=== PATIENT | male | born 1930 | race Caucasian/White ===

== ENCOUNTER 2017-12-13 12:57 | Observation (INO) ==
--- NOTE | 2017-12-13 14:13 | ED ---
HPI General Chief Complaint: Fall Stated Complaint: fall/ [id number] Time Seen by Provider: 12/13/17 13:47 Source: patient Mode of arrival: ambulatory Limitations: no limitations History of Present Illness HPI Narrative: 87yo M with PMH of hydocephalus s/p DIRECTOR PHARMACEUTICAL shunt 4-[address] Crespo here with c/o fall yesterday. As per his daughter, pt has been having increasing problem with his balance for the last week. Pt has constant dizziness for years. Currently complaining of occipital headache and neck pain. Pt has glaucoma but no new visual changes. Denies any fever, chest pain , sob, n/v, abdominal pain, urinary incontinence, new focal weakness or numbness. Related Data Home Medications Medication Instructions Recorded Confirmed Vitamin For Eyes 1 tab PO DAILY 12/13/17 12/13/17 ascorbic acid (vitamin C) [Vitamin 500 mg PO BID 12/13/17 12/13/17 C] aspirin [Aspirin Low Dose] 81 mg PO DAILY 12/13/17 12/13/17 bilberry 100 mg PO DAILY 12/13/17 12/13/17 bimatoprost [Lumigan] 1 drp EACH EYE QPM 12/13/17 12/13/17 cholecalciferol (vitamin D3) 5,000 unit PO DAILY 12/13/17 12/13/17 [Vitamin D3] citalopram [Celexa] 40 mg PO DAILY 12/13/17 12/13/17 cyanocobalamin (vitamin B-12) 1,000 mcg PO DAILY 12/13/17 12/13/17 [Vitamin B-12] dorzolamide-timolol 1 drp EACH EYE BID 12/13/17 12/13/17 fluticasone [Flonase Allergy 2 spray INTRANASAL DAILY 12/13/17 12/13/17 Relief] icosapent ethyl [Vascepa] 1 gm PO BID 12/13/17 12/13/17 midodrine 5 mg PO TID 12/13/17 12/13/17 nateglinide 120 mg PO TID 12/13/17 12/13/17 omeprazole 40 mg PO DAILY 12/13/17 12/13/17 sitagliptin-metformin [Janumet] 0.5 tab PO BID 12/13/17 12/13/17 thiamine HCl (vitamin B1) [Vitamin 100 mg PO DAILY 12/13/17 12/13/17 B-1] tiotropium-olodaterol [Stiolto 2 puff INHALATION DAILY 12/13/17 12/13/17 Respimat] Allergies Allergy/AdvReac Type Severity Reaction Status Date / Time No Known Drug Allergies Allergy Unknown NONE Verified 12/13/17 13:53 Review of Systems ROS Unobtainable All other systems reviewed negative except as stated in [facility] Medical History Medical History Diabetes (Acute) Glaucoma (Acute) Social History Social History Substance History: No History of Abuse Smoking Status: Former smoker How Often Do You Have a Drink Containing Alcohol: Never Recent Travel in [facility] within the Last 8 Weeks: No Recent Out of Country Travel within the Last 8 Weeks: No Immunization History Tetanus Immunization: <5 Years Hx Influenza Vaccine This Season: No Exam Narrative Exam Narrative: GENERAL: 87yo M not in distress. SKIN: Focused skin assessment warm/dry. HEAD: Atraumatic. Normocephalic. EYES: Pupils equal and round at 3mm bilaterally. EOMI. ENT: No nasal bleeding or discharge. Mucous membranes pink and moist. NECK: Trachea midline. No JVD. CARDIOVASCULAR: Regular rate and rhythm. No murmur appreciated. RESPIRATORY: No accessory muscle use. Clear to auscultation. Breath sounds equal bilaterally. GASTROINTESTINAL: Abdomen soft, non-tender, nondistended. No rebound tenderness or guarding. MUSCULOSKELETAL: No obvious deformities. No clubbing. No cyanosis. No edema. NEUROLOGICAL: AAOx3. No obvious cranial nerve deficits. Muscle strength normal in all extremities. Sensation equal in all extremities. Sensation equal bilaterally. Normal speech. PSYCHIATRIC: Appropriate mood and affect; insight and judgment normal. Course Hospital Course: EKG: Sinus bradycardia at 57bpm. Normal axis. 1st AV block. Reevaluation(s) Reevaluation #1: PT consulted for STAT eval Case management is currently involved in case as patient does not meet inpatient critiera Time: 18:20 Reevaluation #2: Stat consult placed for PT - since PT is most likely not in house and has left for the day, case management request that patient be held in the ER for PT eval in the morning, if patient fails PT eval in the morning, then she will help with placing him in a rehab facility tomorrow as patient does live alone at home. Patient does not meet criteria for admission or observation to the hospital. Initial Documented Vital Signs Temperature 98.3 F 12/13/17 13:22 Pulse Rate 62 12/13/17 13:22 Respiratory Rate 16 12/13/17 13:22 Blood Pressure 171/79 H 12/13/17 13:22 Pulse Oximetry 97 12/13/17 13:22 Last Documented Vital Signs Temperature 98.3 F 12/13/17 13:22 Pulse Rate 83 12/14/17 07:07 Respiratory Rate 14 12/14/17 07:07 Blood Pressure 151/88 H 12/14/17 07:07 Pulse Oximetry 96 12/14/17 07:07 Sign Out Sign Out Data: Patient Sign Out occurred on 12/13/17 at 17:44. Patient's care was discussed, and care was transferred from Peggy Johnson DO to Jessica Araya. Sign Out Comment: Please discuss with resident physician to admit patient. Last updated by Peggy Johnson DO at 12/13/17 17:35 Post-Handoff Eval: Received patient in sign out, ER workup has been completed, request that I talk to the inpatient team and get patient admitted to the hospital as patient has gait instability. Patient is able to move all extremites, reports that he just feels weaker overall, he did have home PT but "that's over and I need more home PT." patient understands that he cannot be admitted to the hospital at this time , physical therapy will see him in the morning and assess him, it was be decided whether he will need inpatient physical therapy Medical Decision Making MDM Narrative Medical decision making narrative: 87yo M with hydrocephalus here with c/o worsening balance for the last week. Pt fell last night and has headache and neck pain. No new focal neurologic deficits. Labs reviewed, no leukocytosis. H/H 12/36.6. BMP unremarkable. CT cervical spine showed no acute bony fracture. Extensive primary degenerative changes, disc degeneration disc space narrowing from C3 through C7. CT brain showed stable CT scan of the brain compared to prior exam from 2017. No change in the right ventricular shunt position. The ventricles are mildly prominent but stable compared to prior study. No focal or acute intracranial hemorrhage. Discussed with Dr. Ma who is the neurosurgeon covering Dr. Crespo and he said pt can follow up with Dr. Crespo as outpatient. UA showed WBC 9. Negative nitrite and negative leukocyte. Pt's son came later and said he is unable to walk and that he cant go home. Pt does not have his walker here. He has been having balance problems for at least a week and is always dizzy. Will admit pt for PT and further evaluation since pt is unable to ambulate and lives by himself. Sign out to next team to discuss with resident physicians. 0100 patient is signed out to me by Dr. Araya. Patient remains in the emergency department. Physical therapy examination is not yet done at this time. Patient will stay in the emergency department until this happens and recommendation is made. 0700 patient signed out to Ozzy Fernandez PA-C. He will assume care of the patient at this time. Differential Diagnosis Differential Diagnosis: ICH vs. fracture vs. contusion vs. hydrocephalus Lab Data Result diagrams: 12/13/17 14:20 12/13/17 14:20 Lab Results 12/13/17 12/13/17 12/13/17 Range/Units 14:20 14:20 15:25 WBC 9.0 (4.0-11.0) th/mm3 RBC 4.07 L (4.50-5.90) mil/mm3 Hgb 12.0 L (13.0-17.0) gm/dL Hct 36.6 L (39.0-51.0) % MCV 90.0 (80.0-100.0) fL MCH 29.6 (27.0-34.0) pg MCHC 32.8 (32.0-36.0) % RDW 14.2 (11.6-17.2) % Plt Count 234 (150-450) th/mm3 MPV 8.1 (7.0-11.0) fL Neut % (Auto) 68.0 (16.0-70.0) % Lymph % (Auto) 19.9 (9.0-44.0) % Bartholomew % (Auto) 10.8 H (0.0-8.0) % Eos % (Auto) 1.1 (0.0-4.0) % Baso % (Auto) 0.2 (0.0-2.0) % Neut # (Auto) 6.2 (1.8-7.7) th/mm3 Lymph # (Auto) 1.8 (1.0-4.8) th/mm3 Bartholomew # (Auto) 1.0 H (0.0-0.9) th/mm3 Eos # (Auto) 0.1 (0.0-0.4) th/mm3 Baso # (Auto) 0.0 (0.0-0.2) th/mm3 WBC Differential . Differential Comment Auto diff final Sodium 141 (136-145) meq/L Potassium 4.4 (3.5-5.1) meq/L Chloride 106 (98-107) meq/L Carbon Dioxide 24.8 (21.0-32.0) meq/L Anion Gap 10 (5-15) meq/L BUN 17 (7-18) mg/dL Creatinine 1.02 (0.60-1.30) mg/dL Estimated GFR 69 L (>89) mL/min Random Glucose 109 H (74-106) mg/dL Calcium 8.4 L (8.5-10.1) mg/dL Urine Color Yellow (Yellw/Straw) Urine Clarity Clear (Clear) Urine pH 7.0 (5.0-8.5) Ur Specific [place] 1.014 (1.002-1.035) Urine Protein Negative (Neg-Trace) mg/dL Urine Glucose (UA) Negative (Negative) mg/dL Urine Ketones Negative (Negative) mg/dL Urine Occult Blood Negative (Negative) Urine Nitrate Negative (Negative) Urine Bilirubin Negative (Negative) Urine Urobilinogen 4 or greater (Less than 2) mg/dL Ur Leukocyte Esterase Negative (Negative) Urine RBC Less than 1 (0-3) /hpf Urine WBC 9 H (0-5) /hpf Ur Squamous Epith Cells <1 (0-5) /hpf Imaging Data Radiologist's impression: ITS Impressions Head CT 12/13/17 14:00 CONCLUSION: 1. Stable CT scan of the brain compared to the prior exam from 2017. 2. No change in the right ventricular shunt position. The ventricles are mildly prominent but stable compared to the prior study. 3. Bilateral cortical atrophy and chronic white matter changes. 4. No focal or acute intracranial hemorrhage. Cervical Spine CT 12/13/17 14:02 CONCLUSION: 1. No acute bony fracture. 2. Extensive primary degenerative changes, disc degeneration disc space narrowing from C3 through C7. ECG Data EKG Prior to Arrival: No Attestation: I personally reviewed and interpreted this ECG as follows: Interpretation: EKG: Sinus bradycardia at 57bpm. Normal axis. 1st AV block with prolong [place] interval. No significant ST elevation or depression. Discharge Plan Discharge Disposition Patient Disposition: 30 Still Patient Discharge Condition Condition: Stable Discharge Order Discharge Orders: Discharge Order (Routine); Ordered 12/13/17 Ordered By: Peggy Johnson Discharge Details Discharge Problem: Fall Physicians Team ED Provider: Jessica Araya ED Midlevel Provider: Eri Sierra Primary Care Provider: UNKNOWN, Rxs /Orders / Referrals /Forms Prescriptions: No Action bilberry 100 mg Capsule 100 mg PO DAILY RF: 0 dorzolamide-timolol 22.3-6.8 mg/mL Drops 1 drp EACH EYE BID RF: 0 bimatoprost [Lumigan] 0.01 % Drops 1 drp EACH EYE QPM RF: 0 icosapent ethyl [Vascepa] 1 gram Capsule 1 gm PO BID RF: 0 Vitamin For Eyes 1 tab PO DAILY RF: 0 nateglinide 120 mg Tablet 120 mg PO TID RF: 0 citalopram [Celexa] 40 mg Tablet 40 mg PO DAILY RF: 0 midodrine 5 mg Tablet 5 mg PO TID RF: 0 cyanocobalamin (vitamin B-12) [Vitamin B-12] 1,000 mcg Tablet 1,000 mcg PO DAILY RF: 0 thiamine HCl (vitamin B1) [Vitamin B-1] 100 mg Tablet 100 mg PO DAILY RF: 0 omeprazole 40 mg Capsule,Delayed Release(Dr/Ec) 40 mg PO DAILY RF: 0 aspirin [Aspirin Low Dose] 81 mg Tablet,Delayed Release (Dr/Ec) 81 mg PO DAILY RF: 0 ascorbic acid (vitamin C) [Vitamin C] 500 mg Tablet 500 mg PO BID RF: 0 fluticasone [Flonase Allergy Relief] 50 mcg/actuation [place],Suspension 2 spray Intranasal DAILY RF: 0 sitagliptin-metformin [Janumet] 50-1,000 mg Tablet 0.5 tab PO BID RF: 0 cholecalciferol (vitamin D3) [Vitamin D3] 5,000 unit Tablet 5,000 unit PO DAILY RF: 0 tiotropium-olodaterol [Stiolto Respimat] 2.5-2.5 mcg/actuation Mist 2 puff INHALATION DAILY RF: 0 Status ED Status: With Doctor
[2017-12-13 14:39] LABS: Baso % (Auto) 0.2 % (0.0-2.0); Eos # (Auto) 0.1 th/mm3 (0.0-0.4); Eos % (Auto) 1.1 % (0.0-4.0); Hematocrit 36.6 % (39.0-51.0); Lymph # (Auto) 1.8 th/mm3 (1.0-4.8); Lymph % (Auto) 19.9 % (9.0-44.0); Mean Corpuscular HGB Conc 32.8 % (32.0-36.0); Mean Corpuscular Hemoglobin 29.6 pg (27.0-34.0); Mean Platelet Volume 8.1 fL (7.0-11.0); Mono % (Auto) 10.8 % (0.0-8.0); Neut # (Auto) 6.2 th/mm3 (1.8-7.7); Platelet Count 234 th/mm3 (150-450); Red Blood Count 4.07 mil/mm3 (4.50-5.90); Red Cell Distribution Width 14.2 % (11.6-17.2)
[2017-12-13 15:15] LABS: Calcium 8.4 mg/dL (8.5-10.1); Carbon Dioxide 24.8 meq/L (21.0-32.0); Potassium 4.4 meq/L (3.5-5.1)
[2017-12-13 17:12] LABS: Bilirubin,Urine Negative (Negative); Clarity,Urine Clear (Clear); Color,Urine Yellow (Yellw/Straw); Glucose,Urine (UA) Negative (Negative); Leukocyte Esterase,Urine Negative (Negative); Nitrite,Urine Negative (Negative); Specific Gravity,Urine 1.014 (1.002-1.035); Squamous Epithelial Cell,Urine <1 /hpf (0-5); Urobilinogen,Urine 4 or Greater mg/dL (Less than 2)
[2017-12-13] MEDS ORDERED: Acetaminophen 500 MG Tablet PO ONE (17:12)
--- NOTE | 2017-12-14 11:57 | ECG ---
Date Performed: 12/13/2017 Time Performed: 15:13:40 PTAGE: 87 years EKG: SINUS BRADYCARDIA 1ST DEGREE AV BLOCK Since the PREVIOUS TRACING , no significant change noted PREVIOUS TRACIN08/28/2015 17.13 DOCTOR: Saulo Tafoya Interpretating Date/Time 12/14/2017 11:56:09
[2017-12-14] MEDS ORDERED: Temazepam 15 MG Capsule PO PRN (18:03)
[2017-12-14] MEDS ORDERED: Bisacodyl 10 MG Supp RECTAL PRN (18:03)
--- NOTE | 2017-12-14 20:21 | P.HPIM ---
History of Present Illness Primary Care Physician: UNKNOWN Chief Complaint: weakness History of Present Illness: 87 y/o male with a history of hydrocephalous s/p vp software support shunt, glaucoma, hypotension, DM and vertigo was brought to the ED for increased weakness. Patient states for the last 5 years he has been getter increasingly weaker even despite the SHELL 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 SUPERVISOR shunt. He does live alone and is not able to care for himself alone. Family is unable to care for him. He does use a walker at home but falls a lot, last fall was one week ago. Patient was evaluated by physical therapy and rehab is recommended. He denies any chest pain, or sob. No family at bedside. - Inpatient Certification If this patient has been admitted as an Inpatient: I certify that the inpatient services were ordered in accordance with Medicare regulations governing the order. This includes certification that hospital inpatient services are reasonable and necessary and in the case of services not specified as inpatient-only under 42 CFR 419.22(n), that they are appropriately provided as inpatient services in accordance to with the 2-midnight benchmark under 43 CFR 412.3(e) Review of Systems All other systems reviewed negative except as stated in HPI PMFSH - History History Provided By: Patient, Family Member - Medical History Medical History: Medical History (Last Updated 12/14/17 @ 19:53 by MIKA Escobedo) Diabetes Glaucoma Hydrocephalus Hypotension Vertigo - Surgical History Surgical History: Surgical History (Last Updated 12/14/17 @ 19:32 by MIKA Escobedo) Glaucoma shunt device of both eyes S/P 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 - Tobacco History Second Hand Smoke Exposure: No Tobacco Use In Past 30 Days: No Smoking Status: Former smoker - Alcohol History How Often Do You Have a Drink Containing Alcohol: Never - Substance Use History Substance History: No History of Abuse - Travel History Recent Travel in the [place] Within the Last 8 Weeks: No Recent Travel Out of the Country Within the Last 8 Weeks: No - Immunization History Tetanus Immunization: <5 Years Hx Influenza Vaccine This Season: No Medications and Allergies Active Medications: Active Medications Al Hydroxide/Mg Hydroxide (Milk Of Magncooper Liq) 30 ml PO Q12H PRN PRN Reason: Mild Constipation Bisacodyl (Dulcolax Supp) 10 mg RECTAL DAILY PRN PRN Reason: SEVERE CONSITIPATION Heparin Sodium (Porcine) (Heparin Inj) 5,000 units SQ Q12H SANIA Lactulose (Lactulose Liq) 30 ml PO DAILY PRN PRN Reason: SEVERE CONSITIPATION Senna/Docusate Sodium ([place]-Colace) 1 tab PO BID SANIA Sennosides (Senokot) 17.2 mg PO Q12H PRN PRN Reason: Moderate Constipation Sodium Chloride (Ns Flush) 2 ml IV.FLUSH PRN PRN PRN Reason: FLUSH AFTER USING IV ACCESS Temazepam (Restoril) 15 mg PO HS PRN PRN Reason: INSOMNIA Allergies Allergy/AdvReac Type Severity Reaction Status Date / Time No Known Drug Allergies Allergy Unknown NONE Verified 12/13/17 13:53 Home Medications Medication Instructions Recorded Confirmed Type Vitamin For Eyes 1 tab PO DAILY 12/13/17 12/13/17 History ascorbic acid (vitamin C) [Vitamin 500 mg PO BID 12/13/17 12/13/17 History C] aspirin [Aspirin Low Dose] 81 mg PO DAILY 12/13/17 12/13/17 History bilberry 100 mg PO DAILY 12/13/17 12/13/17 History bimatoprost [Lumigan] 1 drp EACH EYE QPM 12/13/17 12/13/17 History cholecalciferol (vitamin D3) 5,000 unit PO DAILY 12/13/17 12/13/17 History [Vitamin D3] citalopram [Celexa] 40 mg PO DAILY 12/13/17 12/13/17 History cyanocobalamin (vitamin B-12) 1,000 mcg PO DAILY 12/13/17 12/13/17 History [Vitamin B-12] dorzolamide-timolol 1 drp EACH EYE BID 12/13/17 12/13/17 History fluticasone [Flonase Allergy 2 spray INTRANASAL DAILY 12/13/17 12/13/17 History Relief] icosapent ethyl [Vascepa] 1 gm PO BID 12/13/17 12/13/17 History midodrine 5 mg PO TID 12/13/17 12/13/17 History nateglinide 120 mg PO TID 12/13/17 12/13/17 History omeprazole 40 mg PO DAILY 12/13/17 12/13/17 History sitagliptin-metformin [Janumet] 0.5 tab PO BID 12/13/17 12/13/17 History thiamine HCl (vitamin B1) [Vitamin 100 mg PO DAILY 12/13/17 12/13/17 History B-1] tiotropium-olodaterol [Stiolto 2 puff INHALATION DAILY 12/13/17 12/13/17 History Respimat] Exam Vital signs: Vital Signs 12/14/17 07:07 12/14/17 18:21 12/14/17 19:35 Temperature 97.6 F 99 F Pulse Rate 83 84 86 Respiratory Rate 14 18 18 Blood Pressure 151/88 H 152/72 H 132/70 Pulse Oximetry 96 96 - Constitutional no acute distress - Routine HEENT Exam Head: Present: normocephalic Eye: Present: EOMI, PERRL - Routine Neck Exam Present: supple, full ROM - Routine Respiratory Exam Absent: rales, stridor, wheezes, crackles - Routine Cardiovascular Exam Present: RRR - Routine Abdominal Exam Present: soft, normoactive bowel sounds - Routine Skin Exam Present: intact - Routine Neurological Exam Present: alert, oriented X3 - Detailed Neurological Exam Neuro motor strength exam: LUE 4/5 (Bilateral lower extremities 4/5) Results - Labs CBC & Chem 7: 12/13/17 14:20 12/13/17 14:20 Caprini VTE Risk Assessment Caprini VTE Risk Assessment: Moderate/High Risk (score >= 2) Caprini Risk Assessment Model: Point Value = 1 Point Value = 2 Point Value = 3 Point Value = 5 Age 41-60 Minor surgery BMI > 25 kg/m2 Swollen legs Varicose veins or History of unexplained or recurrent spontaneous Oral contraceptives or hormone replacement Sepsis (< 1 month) Serious lung disease, including pneumonia (< 1 month) Abnormal pulmonary function Acute myocardial infarction Congestive heart failure (< 1 month) History of inflammatory bowel disease Medical patient at bed rest Age 61-74 Arthroscopic surgery Major open surgery (> 45 min) Laparoscopic surgery (> 45 min) Malignancy Confined to bed (> 72 hours) Immobilizing plaster cast Central venous access Age >= 75 History of VTE Family history of VTE Factor V Leiden Prothrombin [id number] Lupus anticoagulant Anticardiolipin antibodies Elevated serum homocysteine Heparin-induced thrombocytopenia Other congenital or acquired thrombophilia Stroke (< 1 month) Elective arthroplasty Hip, pelvis, or leg fracture Acute spinal cord injury (< 1 month) Prophylaxis Regimen: Total Risk Factor Score Risk Level Prophylaxis Regimen 0-1 Low Early ambulation 2 Moderate Order ONE of the following: *Sequential Compression Device (SCD) *Heparin 5000 units SQ BID 3-4 Higher Order ONE of the following medications: *Heparin 5000 units SQ TID *Enoxaparin/Lovenox 40 mg SQ daily (WT < 150 kg, CrCl > 30 mL/min) *Enoxaparin/Lovenox 30 mg SQ daily (WT < 150 kg, CrCl > 10-29 mL/min) *Enoxaparin/Lovenox 30 mg SQ BID (WT < 150 kg, CrCl > 30 mL/min) AND/OR *Sequential Compression Device (SCD) 5 or more Highest Order ONE of the following medications: *Heparin 5000 units SQ TID (Preferred with Epidurals) *Enoxaparin/Lovenox 40 mg SQ daily (WT < 150 kg, CrCl > 30 mL/min) *Enoxaparin/Lovenox 30 mg SQ daily (WT < 150 kg, CrCl > 10-29 mL/min) *Enoxaparin/Lovenox 30 mg SQ BID (WT < 150 kg, CrCl > 30 mL/min) AND *Sequential Compression Device (SCD) Assessment and Plan - Plan Physical deconditioning -Physical therapy eval recommends rehab -Consult case management for placement DM, chronic -Accu checks with SSI -Diabetic diet hypotension, chronic -Cont home midodrine -Monitor vitals DVT prophylaxis: SCDs Discussed Condition With: Patient and RN H&P: Quality - VTE Deep Vein Thrombosis/Pulmonary Embolism Present on Admission: Yes
[2017-12-14] MEDS: Heparin - SQ 10,000 UNITS/ML Vial SQ SCH (20:39)
[2017-12-14] MEDS: Senna/Docusate Sodium 8.6/50 MG Tablet PO SCH ×2 (20:39→23:54)
[2017-12-14] MEDS: Ascorbic Acid 500 MG Tablet PO SCH (21:00)
[2017-12-14] MEDS ORDERED: ICOSAPENT ETHYL 1 GM PO SCH (21:00)
[2017-12-15] MEDS: Dorzolamide-Timolol 2/0.5% Opth Drops 10 ML Bottle EACH EYE SCH ×3 (00:01→21:23)
[2017-12-15] MEDS ORDERED: NATEGLINIDE 120 MG PO SCH ×2 (08:00→09:00)
[2017-12-15] MEDS ORDERED: Non-Formulary Drug (Tiotropium-Olodaterol [Stiolto Respimat] 2 PUFF) INHALATION SCH (09:00)
[2017-12-15] MEDS ORDERED: PT:STIOLTO RESPIMAT INH SCH (09:00)
[2017-12-15] MEDS ORDERED: [UNRECOGNIZED DRUG - OTHER] PO SCH (09:00)
[2017-12-15] MEDS: Ascorbic Acid 500 MG Tablet PO SCH ×2 (09:13→21:23)
[2017-12-15] MEDS: Senna/Docusate Sodium 8.6/50 MG Tablet PO SCH ×2 (09:13→21:23)
[2017-12-15] MEDS: Heparin - SQ 10,000 UNITS/ML Vial SQ SCH ×2 (09:14→21:22)
[2017-12-15] MEDS ORDERED: Dextrose 50% in Water 50 ML Vial IV.PUSH PRN (10:21)
[2017-12-15] MEDS: Insulin NovoLOG Aspart Correctional Sugar Inj SQ SCH ×2 (13:13→19:02)
--- NOTE | 2017-12-15 13:28 | P.PN ---
Subjective Interval history: Follow-up visit status post fall, generalized weakness, diabetes. Patient seen and examined today. Daughter at the bedside. Patient states he is doing okay. Denies pain and discomfort. Denies SOB/ dyspnea. Denies chest pain, palpitations, headaches, dizziness. Denies fevers, chills, n/v/d. Denies dysuria. Physical Exam Vital signs: Vital Signs 12/14/17 18:21 12/14/17 19:35 12/15/17 00:00 Temperature 97.6 F 99 F 98.0 F Pulse Rate 84 86 78 Respiratory Rate 18 18 17 Blood Pressure 152/72 H 132/70 185/81 H Pulse Oximetry 96 95 12/15/17 08:16 12/15/17 12:44 Temperature 97.6 F 97.7 F Pulse Rate 77 64 Respiratory Rate 14 22 Blood Pressure 181/90 H 144/62 H Pulse Oximetry 97 96 Intake & Output 12/14/17 12/15/17 12/15/17 18:59 06:59 18:59 Other: Date of Last Bowel Movement 12/14/17 Narrative: GENERAL: This is a well-nourished patient, in no apparent distress. SKIN: Warm and dry. HEENT: Normocephalic. Pupils equal round and reactive. Nose without bleeding. Airway patent. NECK: Trachea midline. No JVD. Supple. CARDIOVASCULAR: Regular rate and rhythm without murmurs, gallops, or rubs. RESPIRATORY: Clear to auscultation. Breath sounds equal bilaterally. No wheezes , rales, or rhonchi. GASTROINTESTINAL: Abdomen soft, non-tender, nondistended. Bowel Sounds normoactive x4. MUSCULOSKELETAL: Extremities without clubbing, cyanosis, or edema. NEUROLOGICAL: Awake and alert. Oriented to place, person. Moves all extremities equally. Slow speech. Results - Labs CBC & Chem 7: 12/13/17 14:20 12/13/17 14:20 Laboratory Results - last 24 hr 12/14/17 12/15/17 12/15/17 15:58 10:22 12:54 POC Glucose 317 H 271 H 290 H Assessment and Plan - Plan 87 y/o male with a history of hydrocephalous s/p vp production shunt, glaucoma, hypotension, DM and vertigo was brought to the ED for increased weakness. EYE SURGEON shunt [address] Crespo Physical deconditioning -Status post multiple falls -CT of the head showed. Stable CT scan of the brain compared to the prior exam from 2017. No change in the right ventricular shunt position. The ventricles are mildly prominent but stable compared to the prior study. Bilateral cortical atrophy and chronic white matter changes. No focal or acute intracranial hemorrhage. -CT of the cervical spine no acute bony fracture. Extensive primary degenerative changes, disc degeneration disc space narrowing from C3 through C7. -Physical therapy eval recommends rehab -Consult case management for placement. Plan for [facility] to evaluate -We will consult neurosurgery, Dr. Crespo to assess and evaluate EYE SURGEON shunt. Patient according to physical therapy is leaning towards the right side when sitting up in standing, also with ambulation. DM, chronic -Accu checks with SSI -Diabetic diet Hypotension, chronic -Cont home midodrine -Monitor vitals DVT prophylaxis: SCDs Code Status: Full code Discussed Condition With: Patient, daughter, nursing Discharge Planning: Patient will need placement to rehabilitation center. Possible [facility] placement. Case management following
[2017-12-15] MEDS ORDERED: BIMATOPROST EACH EYE SCH (18:00)
[2017-12-16] MEDS: Insulin NovoLOG Aspart Correctional Sugar Inj SQ SCH ×5 (01:40→22:46)
[2017-12-16] MEDS: Latanoprost 0.005% Opth Drops 2.5 ML Bottle EACH EYE SCH ×2 (01:42→22:37)
[2017-12-16] MEDS: Heparin - SQ 10,000 UNITS/ML Vial SQ SCH ×2 (09:42→22:38)
[2017-12-16] MEDS: Senna/Docusate Sodium 8.6/50 MG Tablet PO SCH ×2 (09:43→22:38)
[2017-12-16] MEDS: Dorzolamide-Timolol 2/0.5% Opth Drops 10 ML Bottle EACH EYE SCH ×2 (09:44→22:48)
[2017-12-16] MEDS: Ascorbic Acid 500 MG Tablet PO SCH ×2 (09:44→22:37)
--- NOTE | 2017-12-16 13:59 | P.PN ---
Subjective Interval history: Follow-up visit status post fall, generalized weakness, diabetes. Patient seen and examined today. Daughter at the bedside. Patient states he is doing okay. Confuse. Does not know where he is at, states it is 1950. Knows his name and daughters name. Denies pain and discomfort. Denies SOB/ dyspnea. Denies chest pain, headaches. Denies fevers, chills. Physical Exam Vital signs: Vital Signs 12/15/17 16:32 12/15/17 20:00 12/15/17 23:44 Temperature 98.3 F 98.6 F 98.5 F Pulse Rate 66 65 64 Respiratory Rate 18 16 16 Blood Pressure 150/68 H 139/67 132/60 Pulse Oximetry 97 96 95 12/16/17 03:53 12/16/17 08:16 12/16/17 11:58 Temperature 99.1 F 97.8 F 98.5 F Pulse Rate 64 68 73 Respiratory Rate 18 16 16 Blood Pressure 137/66 154/69 H 132/94 H Pulse Oximetry 95 95 95 Intake & Output 12/15/17 12/16/17 12/16/17 18:59 06:59 18:59 Other: # Incontinent Voids 3 # Urine Diapers 2 Date of Last Bowel Movement 12/15/17 12/16/17 Narrative: GENERAL: This is a well-nourished patient, in no apparent distress. SKIN: Warm and dry. HEENT: Normocephalic. Pupils equal round and reactive. Nose without bleeding. Airway patent. NECK: Trachea midline. No JVD. Supple. CARDIOVASCULAR: Regular rate and rhythm without murmurs, gallops, or rubs. RESPIRATORY: Clear to auscultation. Breath sounds equal bilaterally. No wheezes , rales, or rhonchi. GASTROINTESTINAL: Abdomen soft, non-tender, nondistended. Bowel Sounds normoactive x4. MUSCULOSKELETAL: Extremities without clubbing, cyanosis, or edema. NEUROLOGICAL: Awake and alert. Oriented to person. Moves all extremities equally. Slow speech with slow response. Able to follwo commands Results - Labs CBC & Chem 7: 12/13/17 14:20 12/13/17 14:20 Laboratory Results - last 24 hr 12/15/17 12/15/17 12/16/17 18:57 21:37 09:41 POC Glucose 135 H 152 H 180 H 12/16/17 12:38 POC Glucose 244 H Assessment and Plan - Plan 87 y/o male with a history of hydrocephalous s/p vp analysis shunt, glaucoma, hypotension, DM and vertigo was brought to the ED for increased weakness. PAPER BAG MAKER shunt [address] Crespo Physical deconditioning -Status post multiple falls -CT of the head showed. Stable CT scan of the brain compared to the prior exam from 2017. No change in the right ventricular shunt position. The ventricles are mildly prominent but stable compared to the prior study. Bilateral cortical atrophy and chronic white matter changes. No focal or acute intracranial hemorrhage. -CT of the cervical spine no acute bony fracture. Extensive primary degenerative changes, disc degeneration disc space narrowing from C3 through C7. -Physical therapy eval recommends rehab -Consult case management for placement. Plan for [facility] to evaluate, denied by insurance. Rehab SNF placement with CM -Consult neurosurgery, Dr. Crespo to assess and evaluate PAPER BAG MAKER shunt. -According to physical therapy is leaning towards the right side when sitting up in standing, also with ambulation. -Daughter is concerned about this change in patient. She was reassured since yesterday but adamant that patient came into the hospital because of neurological issues. Discussed all the results of testings with the patient. Pending neurosurgery consult. -Check UA DM, chronic -Accu checks with SSI -Diabetic diet Hypotension, chronic -Cont home midodrine -Monitor vitals DVT prophylaxis: SCDs Code Status: Full code Discussed Condition With: Patient, nurse, Dr. Van, daughter, Charge nurse Discharge Planning: Patient will need placement to rehabilitation center. Case management following
--- NOTE | 2017-12-16 15:28 | P.CONNS ---
History of Present Illness Service: Neurosurgery Consult date: 12/16/17 Reason for Consult: HEADLIGHT ADJUSTER shunt , gait difficulty Primary Care Provider: UNKNOWN Chief Complaint: weakness History of Present Illness: 87-year-old male with history of ventriculoperitoneal shunt approximately 2016. His daughter states that he had significant improvement in his gait following the shunt. He has been relatively stable up until this past 12/11/2017 , when he rather abruptly experienced deterioration of his gait, unable to ambulate without assistance. He has had further progression of gait deficit since that time, unable to get out of bed at all without significant assistance according to his daughter. She has also noted significant change in his memory and mental functions over the past few days. Speech has remained relatively clear. The patient has no complaint of significant new speech problem. He does complain of headache, although somewhat difficult to determine if this is a more recent problem or chronic. He complains of blurred vision, occasional diplopia. Complains of some dizziness without vertigo. He does not complain of significant extremity or back pain with ambulation. Review of Systems Constitutional: Reports headache(s), Reports lack of energy, Denies fever(s) Eyes: Reports blurry vision, Reports double vision Ears, Nose, Mouth, and Throat: Reports dizziness, Denies difficulty swallowing Cardiovascular: Denies chest pain, Denies fainting, Denies rapid, pounding, or irregular heartbeat Respiratory: Denies cough Gastrointestinal: Denies abdominal pain, Denies vomiting Genitourinary: Denies urinary incontinence Neurologic: Reports dizziness, Reports memory loss, Denies abnormal speech, Denies confusion, Denies fainting, Denies radiating pain PMFSH - History History Provided By: Patient, Family Member - Medical History Medical History: Medical History (Last Reviewed 12/16/17 @ 20:37 by Nixon Sotelo MD) Diabetes Glaucoma Hydrocephalus Hypotension Vertigo - Surgical History Surgical History: Surgical History (Last Reviewed 12/16/17 @ 20:37 by Nixon Sotelo MD) Glaucoma shunt device of both eyes S/P HEADLIGHT ADJUSTER shunt - Tobacco History Second Hand Smoke Exposure: No Tobacco Use In Past 30 Days: No Smoking Status: Former smoker - Alcohol History How Often Do You Have a Drink Containing Alcohol: Never - Substance Use History Substance History: No History of Abuse - Travel History Recent Travel in the [facility] Within the Last 8 Weeks: No Recent Travel Out of the Country Within the Last 8 Weeks: No - Immunization History Tetanus Immunization: <5 Years Hx Influenza Vaccine This Season: No Medications and Allergies Active Medications: Active Medications Al Hydroxide/Mg Hydroxide (Milk Of Magnesia Liq) 30 ml PO Q12H PRN PRN Reason: Mild Constipation Ascorbic Acid (Vitamin C) 500 mg PO BID [facility] Last Admin: 12/16/17 09:44 Dose: 500 mg Aspirin (Ecotrin) 81 mg PO DAILY [facility] Last Admin: 12/16/17 09:44 Dose: 81 mg Bisacodyl (Dulcolax Supp) 10 mg RECTAL DAILY PRN PRN Reason: SEVERE CONSITIPATION Citalopram Hydrobromide (Celexa) 40 mg PO DAILY [facility] Last Admin: 12/16/17 09:43 Dose: 40 mg Dextrose (D50w Vial) 50 ml IV.PUSH UNSCH PRN PRN Reason: PER HYPOGLYCEMIA PROTOCOL Dorzolamide/Timolol (Cosopt 2/0.5% Opth Drops) 1 drop EACH EYE BID [facility] Last Admin: 12/16/17 09:44 Dose: 1 drop Glucagon (Glucagon Inj) 1 mg OTHER PRN PRN PRN Reason: for Hypoglycemia Protocol Heparin Sodium (Porcine) (Heparin Inj) 5,000 units SQ Q12H [facility] Last Admin: 12/16/17 09:42 Dose: 5,000 units Insulin Aspart (Novolog Insulin Suppl Scale Inj) 0 unit SQ ACHS [facility]; Protocol Last Admin: 12/16/17 12:45 Dose: 4 unit Lactulose (Lactulose Liq) 30 ml PO DAILY PRN PRN Reason: SEVERE CONSITIPATION Latanoprost (Xalatan 0.005% Opth Drops) 1 drop EACH EYE HS [facility] Last Admin: 12/16/17 01:42 Dose: 1 drop Midodrine (Proamatine) 5 mg PO TID [facility] Last Admin: 12/16/17 12:45 Dose: 5 mg Non-Formulary Medication (Sitagliptin-Metformin [Janumet]) 0.5 tab PO BID [facility] Pantoprazole Sodium (Protonix) 40 mg PO DAILY [facility] Last Admin: 12/16/17 09:43 Dose: 40 mg Pt:Stiolto Respimat 0 each INH DAILY [facility] Pt:Vascepa 1 Gm 0 each PO BID [facility] Pt:Nateglinide 120 (Mg) 0 each PO TIDAC [facility] Senna/Docusate Sodium (Apolonia-Colace) 1 tab PO BID [facility] Last Admin: 12/16/17 09:43 Dose: 1 tab Sennosides (Senokot) 17.2 mg PO Q12H PRN PRN Reason: Moderate Constipation Sodium Chloride (Ns Flush) 2 ml IV.FLUSH PRN PRN PRN Reason: FLUSH AFTER USING IV ACCESS Temazepam (Restoril) 15 mg PO HS PRN PRN Reason: INSOMNIA Allergies Allergy/AdvReac Type Severity Reaction Status Date / Time No Known Drug Allergies Allergy Unknown NONE Verified 12/13/17 13:53 Home Medications Medication Instructions Recorded Confirmed Type Vitamin For Eyes 1 tab PO DAILY 12/13/17 12/13/17 History ascorbic acid (vitamin C) [Vitamin 500 mg PO BID 12/13/17 12/13/17 History C] aspirin [Aspirin Low Dose] 81 mg PO DAILY 12/13/17 12/13/17 History bilberry 100 mg PO DAILY 12/13/17 12/13/17 History bimatoprost [Lumigan] 1 drp EACH EYE QPM 12/13/17 12/13/17 History cholecalciferol (vitamin D3) 5,000 unit PO DAILY 12/13/17 12/13/17 History [Vitamin D3] citalopram [Celexa] 40 mg PO DAILY 12/13/17 12/13/17 History cyanocobalamin (vitamin B-12) 1,000 mcg PO DAILY 12/13/17 12/13/17 History [Vitamin B-12] dorzolamide-timolol 1 drp EACH EYE BID 12/13/17 12/13/17 History fluticasone [Flonase Allergy 2 spray INTRANASAL DAILY 12/13/17 12/13/17 History Relief] icosapent ethyl [Vascepa] 1 gm PO BID 12/13/17 12/13/17 History midodrine 5 mg PO TID 12/13/17 12/13/17 History nateglinide 120 mg PO TID 12/13/17 12/13/17 History omeprazole 40 mg PO DAILY 12/13/17 12/13/17 History sitagliptin-metformin [Janumet] 0.5 tab PO BID 12/13/17 12/13/17 History thiamine HCl (vitamin B1) [Vitamin 100 mg PO DAILY 12/13/17 12/13/17 History B-1] tiotropium-olodaterol [Stiolto 2 puff INHALATION DAILY 12/13/17 12/13/17 History Respimat] Exam Vital signs: Vital Signs 12/15/17 16:32 12/15/17 20:00 12/15/17 23:44 Temperature 98.3 F 98.6 F 98.5 F Pulse Rate 66 65 64 Respiratory Rate 18 16 16 Blood Pressure 150/68 H 139/67 132/60 Pulse Oximetry 97 96 95 12/16/17 03:53 12/16/17 08:16 12/16/17 11:58 Temperature 99.1 F 97.8 F 98.5 F Pulse Rate 64 68 73 Respiratory Rate 18 16 16 Blood Pressure 137/66 154/69 H 132/94 H Pulse Oximetry 95 95 95 Intake & Output 12/15/17 12/16/17 12/16/17 18:59 06:59 18:59 Other: # Incontinent Voids 3 # Urine Diapers 2 Date of Last Bowel Movement 12/15/17 12/16/17 Narrative: Pleasant elderly gentleman, no apparent distress Respirations clear, nonlabored Cardiac regular Abdomen soft, nontender Extremities: No significant edema or cyanosis Neurologic: Awake and alert Speech is moderately slow but clear Moderate slowing of thought processes Moderate decreased recent and remote memory. Appears to have diminished judgment and insight No obvious anxiety or depression Extraocular movements and visual saavedra to confrontation intact Facial sensorimotor intact Moderate decreased hearing to finger rub bilateral Sensation intact light touch all extremities Strength is mostly within normal limits major flexion-extension groups all extremities Horn's response mild positive right, absent left No ankle clonus Plantar responses are mildly extensor Mild slowing of fine motor responses upper extremities Results - Laboratory Findings CBC and BMP: 12/13/17 14:20 12/13/17 14:20 Abnormal lab findings: Abnormal Labs 12/13/17 12/13/17 12/13/17 14:20 14:20 15:25 RBC 4.07 L Hgb 12.0 L Hct 36.6 L [place] % (Auto) 10.8 H [place] # (Auto) 1.0 H Estimated GFR 69 L POC Glucose Random Glucose 109 H Calcium 8.4 L Urine WBC 9 H 12/14/17 12/15/17 12/15/17 15:58 10:22 12:54 RBC Hgb Hct [place] % (Auto) [place] # (Auto) Estimated GFR POC Glucose 317 H 271 H 290 H Random Glucose Calcium Urine WBC 12/15/17 12/15/17 12/16/17 18:57 21:37 09:41 RBC Hgb Hct [place] % (Auto) [place] # (Auto) Estimated GFR POC Glucose 135 H 152 H 180 H Random Glucose Calcium Urine WBC 12/16/17 12:38 RBC Hgb Hct [place] % (Auto) [place] # (Auto) Estimated GFR POC Glucose 244 H Random Glucose Calcium Urine WBC Assessment and Plan - Plan Impression: Recent rather acute onset of increased gait difficulty, mental status changes with increased memory loss occurring on 12/11/2017 according to the patient's family. They indicate his gait has continued to deteriorate over the past few days. History of ventriculoperitoneal shunt. No definite evidence of shunt malfunction on CT scan and examination. Assessment possible CVA. Neurologic exam does reveal some lower extremity myelopathic findings, need to assess for possible myelopathy especially in consideration of his multiple recent falls. Plan: Discussed with the patient and his daughter. Proceed with MRI of the brain to assess for possible CVA. Also MRI cervical and thoracic spine to assess for spinal cord compression-myelopathy. Continue physical therapy
[2017-12-16 19:23] LABS: Amorphous Sediment,Urine Rare /hpf; Bacteria,Urine Few /hpf; Bilirubin,Urine Negative (Negative); Clarity,Urine Hazy (Clear); Color,Urine Yellow (Yellw/Straw); Glucose,Urine (UA) 50 mg/dL (Negative); Leukocyte Esterase,Urine Small (Negative); Mucus,Urine Few /lpf (Occasional); Nitrite,Urine Negative (Negative); Specific Gravity,Urine 1.021 (1.002-1.035); Squamous Epithelial Cell,Urine 2 /hpf (0-5)
[2017-12-16] MEDS: Sod Chloride 0.9% Inj 1,000 ML IV.CONT SCH (22:51)
[2017-12-17] MEDS: Insulin NovoLOG Aspart Correctional Sugar Inj SQ SCH ×3 (08:00→22:04)
[2017-12-17] MEDS: Heparin - SQ 10,000 UNITS/ML Vial SQ SCH ×2 (09:26→22:06)
[2017-12-17] MEDS: Senna/Docusate Sodium 8.6/50 MG Tablet PO SCH ×2 (09:27→22:07)
[2017-12-17] MEDS: Dorzolamide-Timolol 2/0.5% Opth Drops 10 ML Bottle EACH EYE SCH (09:27)
[2017-12-17] MEDS: Ascorbic Acid 500 MG Tablet PO SCH ×2 (09:28→22:07)
[2017-12-17 10:38] LABS: Baso % (Auto) 0.2 % (0.0-2.0); Eos % (Auto) 0.4 % (0.0-4.0); Hematocrit 37.9 % (39.0-51.0); Hemoglobin 12.5 gm/dL (13.0-17.0); Lymph # (Auto) 1.7 th/mm3 (1.0-4.8); Lymph % (Auto) 14.6 % (9.0-44.0); Mean Corpuscular HGB Conc 33.1 % (32.0-36.0); Mean Corpuscular Hemoglobin 29.6 pg (27.0-34.0); Mean Corpuscular Volume 89.4 fL (80.0-100.0); Mean Platelet Volume 9.1 fL (7.0-11.0); Mono # (Auto) 1.4 th/mm3 (0.0-0.9); Mono % (Auto) 11.7 % (0.0-8.0); Neut # (Auto) 8.7 th/mm3 (1.8-7.7); Neut % (Auto) 73.1 % (16.0-70.0); Platelet Count 243 th/mm3 (150-450); Red Blood Count 4.24 mil/mm3 (4.50-5.90); Red Cell Distribution Width 13.9 % (11.6-17.2); White Blood Count 11.9 th/mm3 (4.0-11.0)
[2017-12-17 11:01] LABS: Calcium 9.1 mg/dL (8.5-10.1); Potassium 3.7 meq/L (3.5-5.1)
--- NOTE | 2017-12-17 12:14 | MR ---
EXAM DATE: 12/17/2017 12:05 PM EDT AGE/SEX: 87 years / Male INDICATIONS: . Lower extremity weakness. CLINICAL DATA: This is the patient's initial encounter. Patient reports that signs and symptoms have been present for 2 days and indicates a pain score of 4/10. MEDICAL/SURGICAL HISTORY: Diabetes mellitus type II. Hypertension. . 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 COMPARISON: No prior exams available for comparison. TECHNIQUE: Multiplanar, multisequence MRI examination of the cervical spine was performed without co ntrast. FINDINGS: At C2-3 there is some posterior osteophytic ridging but without significant canal or foraminal stenos is. At C3-4 there is broad-based osteophytic ridging effacing the thecal sac anteriorly without significa nt cord compression. Mild bilateral foraminal stenosis. At C4-5 there is a broad-based posterior disc osteophyte complex with mild AP canal stenosis and mild impression on interstitial moderate bilateral foraminal stenosis. At C5-6 broad-based disc osteophyte complex effaces the thecal sac with minimal impression on the ant erior surface of the cord. Mild bilateral foraminal stenosis. At C6-7 posterior disc osteophyte complex results in a mild impression on the anterior surface of the cord. Mild bilateral foraminal stenosis. At C7-T1 there is posterior disc osteophyte complex partially effacing the thecal sac. Mild bilateral foraminal stenosis. CONCLUSION: 1. 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 Broad-based disc osteophyte complex at C3-4-5-6-7 effaces the anterior thecal sac with minimal im pressions on the anterior surface of the cord. No cord signal abnormality. 3. No acute fracture or significant spondylolisthesis. Electronically signed by: Lonnie Feliciano MD 12/17/2017 12:13 PM EDT
--- NOTE | 2017-12-17 12:26 | MR ---
EXAM DATE: 12/17/2017 12:17 PM EDT AGE/SEX: 87 years / Male INDICATIONS: . Weakness lower extremities. CLINICAL DATA: This is the patient's initial encounter. Patient reports that signs and symptoms have been present for 2 days and indicates a pain score of 5/10. MEDICAL/SURGICAL HISTORY: Diabetes mellitus type II. Hypertension. . 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 COMPARISON: [facility] [place], CT HEAD W/O CONTRAST, 12/13/2017. . TECHNIQUE: Multiplanar, multisequence examination of the brain was performed without contrast. FINDINGS: Right frontal ventriculostomy tube is present. There is ventriculomegaly similar to recent CT. Severe chronic white matter ischemic change present. There is cortical volume loss. No recent infarct ident ified on the diffusion weighted images. CONCLUSION: 1. No acute findings. Stable ventriculomegaly. Severe chronic white matter ischemic changes. No rece nt infarct. Electronically signed by: Lonnie Feliciano MD 12/17/2017 12:25 PM EDT
--- NOTE | 2017-12-17 12:28 | MR ---
EXAM DATE: 12/17/2017 12:12 PM EDT AGE/SEX: 87 years / Male INDICATIONS: . Lower extremity weakness. CLINICAL DATA: This is the patient's initial encounter. Patient reports that signs and symptoms have been present for 2 days and indicates a pain score of 5/10. MEDICAL/SURGICAL HISTORY: Hypertension. Diabetes mellitus type II. . 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 TECHNIQUE: Multiplanar, multisequence MRI of the thoracic spine was performed. FINDINGS: There is moderate degenerative disc disease throughout the thoracic spine. Small Schmorl's nodes pres ent at T10-11 no acute fracture or spondylolisthesis. No canal stenosis or direct nerve root compress ion identified. No cord signal abnormality CONCLUSION: 1. No acute findings. No significant canal stenosis. No cord impingement or cord signal abnormality. Electronically signed by: Lonnie Feliciano MD 12/17/2017 12:27 PM EDT
[2017-12-17] MEDS: Sod Chloride 0.9% Inj 1,000 ML IV.CONT SCH ×2 (12:36→22:08)
[2017-12-17 13:12] LABS: Hemoglobin A1c 6.4 % (4.3-6.0)
--- NOTE | 2017-12-17 13:30 | P.PNIM ---
Subjective Interval history: Patient seen with daughter at bedside. Discussed with RN. Still has some confusion but is improved. He knows he is in the hospital. Eating better. Physical Exam Vital signs: Vital Signs 12/16/17 16:00 12/16/17 20:00 12/17/17 00:00 Temperature 98.8 F 97.9 F 98.3 F Pulse Rate 87 85 74 Respiratory Rate 18 20 16 Blood Pressure 180/101 H 174/99 H 134/70 Pulse Oximetry 96 95 96 12/17/17 03:36 Temperature 97.4 F L Pulse Rate 73 Respiratory Rate 20 Blood Pressure 154/72 H Pulse Oximetry 96 Intake & Output 12/16/17 12/17/17 12/17/17 18:59 06:59 18:59 Intake Total 100 / 100 Balance 100 / 100 Intake: IV 100 / 100 Rocephin Inj 1,000 MG In NS Inj 100 / 100 100 ML @ 200 mls/hr IV.SIG Q24H [facility] Rx#:[id number] Other: Post Void Residual 2 # Incontinent Voids 2 Date of Last Bowel Movement 12/16/17 12/16/17 12/16/17 Narrative: GENERAL: Elderly male in no acute distress. SKIN: Warm and dry. CARDIOVASCULAR: Regular rate and rhythm without murmurs, gallops, or rubs. RESPIRATORY: Clear to auscultation. Breath sounds equal bilaterally. No wheezes , rales, or rhonchi. GASTROINTESTINAL: Abdomen soft, non-tender, nondistended. Bowel Sounds normoactive x4. MUSCULOSKELETAL: Extremities without clubbing, cyanosis, or edema. NEUROLOGICAL: Awake and alert. Oriented to self. Moves all extremities equally. Able to follow commands. Generalized weakness. Results - Labs CBC & Chem 7: 12/17/17 09:35 12/17/17 09:35 Laboratory Results - last 24 hr 12/16/17 12/16/17 12/16/17 17:55 18:50 22:32 WBC RBC Hgb Hct MCV MCH MCHC RDW Plt Count MPV Neut % (Auto) Lymph % (Auto) Coffey % (Auto) Eos % (Auto) Baso % (Auto) Neut # (Auto) Lymph # (Auto) Coffey # (Auto) Eos # (Auto) Baso # (Auto) WBC Differential Differential Comment Sodium Potassium Chloride Carbon Dioxide Anion Gap BUN Creatinine Estimated GFR POC Glucose 196 H 173 H Random Glucose Hemoglobin A1c Calcium Urine Color Yellow Urine Clarity Hazy H Urine pH 5.0 Ur Specific Ledbetter 1.021 Urine Protein 30 H Urine Glucose (UA) 50 Urine Ketones Trace Urine Occult Blood Small H Urine Nitrate Negative Urine Bilirubin Negative Urine Urobilinogen 2.0 H Ur Leukocyte Esterase Small H Urine RBC 9 H Urine WBC 31 H Ur Squamous Epith Cells 2 Amorphous Sediment Rare H Urine Bacteria Few H Urine Mucus Few H Urine Yeast Few H Micro UA Comment Culture indicated Urine Culture Comments Culture indicated 12/17/17 12/17/17 12/17/17 09:06 09:35 09:35 WBC 11.9 H RBC 4.24 L Hgb 12.5 L Hct 37.9 L MCV 89.4 MCH 29.6 MCHC 33.1 RDW 13.9 Plt Count 243 MPV 9.1 Neut % (Auto) 73.1 H Lymph % (Auto) 14.6 Coffey % (Auto) 11.7 H Eos % (Auto) 0.4 Baso % (Auto) 0.2 Neut # (Auto) 8.7 H Lymph # (Auto) 1.7 Coffey # (Auto) 1.4 H Eos # (Auto) 0.0 Baso # (Auto) 0.0 WBC Differential . Differential Comment Auto diff final Sodium 137 Potassium 3.7 Chloride 102 Carbon Dioxide 25.0 Anion Gap 10 BUN 15 Creatinine 0.99 Estimated GFR 71 L POC Glucose 185 H Random Glucose 168 H Hemoglobin A1c Calcium 9.1 Urine Color Urine Clarity Urine pH Ur Specific Ledbetter Urine Protein Urine Glucose (UA) Urine Ketones Urine Occult Blood Urine Nitrate Urine Bilirubin Urine Urobilinogen Ur Leukocyte Esterase Urine RBC Urine WBC Ur Squamous Epith Cells Amorphous Sediment Urine Bacteria Urine Mucus Urine Yeast Micro UA Comment Urine Culture Comments 12/17/17 12/17/17 09:35 12:59 WBC RBC Hgb Hct MCV MCH MCHC RDW Plt Count MPV Neut % (Auto) Lymph % (Auto) Coffey % (Auto) Eos % (Auto) Baso % (Auto) Neut # (Auto) Lymph # (Auto) Coffey # (Auto) Eos # (Auto) Baso # (Auto) WBC Differential Differential Comment Sodium Potassium Chloride Carbon Dioxide Anion Gap BUN Creatinine Estimated GFR POC Glucose 231 H Random Glucose Hemoglobin A1c 6.4 H Calcium Urine Color Urine Clarity Urine pH Ur Specific Ledbetter Urine Protein Urine Glucose (UA) Urine Ketones Urine Occult Blood Urine Nitrate Urine Bilirubin Urine Urobilinogen Ur Leukocyte Esterase Urine RBC Urine WBC Ur Squamous Epith Cells Amorphous Sediment Urine Bacteria Urine Mucus Urine Yeast Micro UA Comment Urine Culture Comments Microbiology 12/16/17 18:50 Clean Catch Urine Urine Culture - Preliminary No growth in 24 hours - Imaging Impressions Cervical Spine MRI 12/17/17 00:00 CONCLUSION: 1. 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 Broad-based disc osteophyte complex at C3-4-5-6-7 effaces the anterior thecal sac with minimal impressions on the anterior surface of the cord. No cord signal abnormality. 3. No acute fracture or significant spondylolisthesis. Head MRI 12/17/17 00:00 CONCLUSION: 1. No acute findings. Stable ventriculomegaly. Severe chronic white matter ischemic changes. No recent infarct. Thoracic Spine MRI 12/17/17 00:00 CONCLUSION: 1. No acute findings. No significant canal stenosis. No cord impingement or cord signal abnormality. Assessment and Plan - Plan 87 y/o male with a history of hydrocephalous s/p evp operations shunt, glaucoma, hypotension, DM and vertigo was brought to the ED for increased weakness. 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 Crespo Physical deconditioning -Status post multiple falls -Stable CT scan of the brain compared to the prior exam from 2017. No change in the right ventricular shunt position. The ventricles are mildly prominent but stable compared to the prior study. Bilateral cortical atrophy and chronic white matter changes. No focal or acute intracranial hemorrhage. -Neurosurgery following. MRI of the brain shows severe chronic white matter ischemic changes. No acute infarcts, cervical spine and thoracic spine MRI grossly unremarkable. Further interpretation per neurosurgery. -Physical therapy following. Insurance company denied admission to [facility]. Case management working on SNF placement. Abnormal urinalysis: UTI may be contributing to above. Currently on Rocephin. - Follow urine cultures. DM, chronic -Accu checks with SSI -Diabetic diet Hypotension, chronic -Cont home midodrine -Monitor vitals DVT prophylaxis: Heparin
[2017-12-17] MEDS: Latanoprost 0.005% Opth Drops 2.5 ML Bottle EACH EYE SCH (22:06)
[2017-12-18] MEDS: Dorzolamide-Timolol 2/0.5% Opth Drops 10 ML Bottle EACH EYE SCH (03:47)
[2017-12-18] MEDS: Senna/Docusate Sodium 8.6/50 MG Tablet PO SCH (09:43)
[2017-12-18] MEDS: Ascorbic Acid 500 MG Tablet PO SCH (09:43)
[2017-12-18] MEDS: Heparin - SQ 10,000 UNITS/ML Vial SQ SCH (09:43)
[2017-12-18] MEDS: Insulin NovoLOG Aspart Correctional Sugar Inj SQ SCH (09:53)
[2017-12-18] MEDS: Sod Chloride 0.9% Inj 1,000 ML IV.CONT SCH (09:59)
--- NOTE | 2017-12-18 15:13 | P.DS ---
Date of admission: 12/14/17 15:19 Primary care physician: UNKNOWN Brief History from admission: HPI from the admitting team. 87 y/o male with a history of hydrocephalous s/p vp software support shunt, glaucoma, hypotension, DM and vertigo was brought to the ED for increased weakness. Patient states for the last 5 years he has been getter increasingly weaker even despite the [employer] shunt. He does live alone and is not able to care for himself alone. Family reportedly unable to care for him. He does use a walker at home but falls a lot, last fall was one week ago. Patient was evaluated by physical therapy and rehab is recommended. He denies any chest pain, or sob. DS: Diagnosis - Discharge Diagnosis (1) Unsteady gait Status: Acute (2) Cognitive changes Status: Acute (3) Diabetes Status: Acute (4) Hypotension Status: Acute DS: Medications - Discharge Medications Prescriptions: temazepam 15 mg PO HS PRN #20 cap PRN Reason: Insomnia DS: Summary Hospital Course: The patient is a 87-year-old male with history of hydrocephalus status post shunt who presented to the hospital with complaint of multiple falls and abnormal gait. The patient underwent extensive workup including brain CT and MRI. He was evaluated by neurosurgery. MRI of the brain showed severe chronic white matter ischemic changes. No acute infarcts noted. Cervical spine and thoracic spine MRI grossly unremarkable. The patient has obvious cognitive deficits, mostly related to memory. His urinalysis was abnormal but culture was negative. Antibiotics discontinued. The patient was evaluated by physical therapy. He remains deconditioned with abnormal gait in need of continuing physical therapy. He is discharged to SNF to continue rehabilitation efforts. Given the symptoms, it is likely the patient has progressive dementia. His daughter at bedside reports he was never formally diagnosed with dementia. I advised outpatient follow-up with neurology for formal cognitive testing. DM, chronic: Continue home medications. Diabetic diet Hypotension, chronic -Cont home midodrine -Monitor vitals - Time Spent with Patient Total time spent providing and/or coordinating discharge services: - Quality: VTE Deep Vein Thrombosis/Pulmonary Embolism Present on Admission: Yes Exam Vital signs: Vital Signs 12/17/17 16:00 12/17/17 19:23 12/18/17 03:57 Temperature 97.9 F 99.1 F 97.2 F L Pulse Rate 70 81 82 Respiratory Rate 20 18 20 Blood Pressure 168/68 H 141/65 H 138/74 Pulse Oximetry 98 96 97 12/18/17 08:00 12/18/17 12:00 Temperature 98.8 F 98.9 F Pulse Rate 95 H 95 H Respiratory Rate 18 20 Blood Pressure 166/78 H 166/78 H Pulse Oximetry 97 97 Intake & Output 12/17/17 12/18/17 12/18/17 18:59 06:59 18:59 Intake Total 1100 / 1100 Balance 1100 / 1100 Intake: IV 1100 / 1100 NS Inj 1,000 ML @ 60 mls/hr IV. 1000 / 1000 CONT .[id number] [facility] Rx#:[id number] Rocephin Inj 1,000 MG In NS Inj 100 / 100 100 ML @ 200 mls/hr IV.SIG Q24H [facility] Rx#:[id number] Other: # Voids 3 Date of Last Bowel Movement 12/16/17 12/16/17 Narrative: GENERAL: Elderly male in no acute distress. SKIN: Warm and dry. CARDIOVASCULAR: Regular rate and rhythm without murmurs, gallops, or rubs. RESPIRATORY: Clear to auscultation. Breath sounds equal bilaterally. No wheezes , rales, or rhonchi. GASTROINTESTINAL: Abdomen soft, non-tender, nondistended. Bowel Sounds normoactive x4. MUSCULOSKELETAL: Extremities without clubbing, cyanosis, or edema. NEUROLOGICAL: Awake and alert. Oriented to self. Moves all extremities equally. Able to follow commands. Generalized weakness. Results Procedures completed during hospitalization: None Labs on day of discharge: Labs from last 24 hours 12/18/17 12/17/17 12/17/17 09:27 20:18 18:34 POC Glucose 189 H 157 H 151 H - Impressions ITS Impressions Head CT 12/13/17 14:00 CONCLUSION: 1. Stable CT scan of the brain compared to the prior exam from 2017. 2. No change in the right ventricular shunt position. The ventricles are mildly prominent but stable compared to the prior study. 3. Bilateral cortical atrophy and chronic white matter changes. 4. No focal or acute intracranial hemorrhage. Cervical Spine CT 12/13/17 14:02 CONCLUSION: 1. No acute bony fracture. 2. Extensive primary degenerative changes, disc degeneration disc space narrowing from C3 through C7. Cervical Spine MRI 12/17/17 00:00 CONCLUSION: 1. 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 Broad-based disc osteophyte complex at C3-4-5-6-7 effaces the anterior thecal sac with minimal impressions on the anterior surface of the cord. No cord signal abnormality. 3. No acute fracture or significant spondylolisthesis. Head MRI 12/17/17 00:00 CONCLUSION: 1. No acute findings. Stable ventriculomegaly. Severe chronic white matter ischemic changes. No recent infarct. Thoracic Spine MRI 12/17/17 00:00 CONCLUSION: 1. No acute findings. No significant canal stenosis. No cord impingement or cord signal abnormality. Discharge Plan - Discharge Disposition Patient Disposition: 03 Discharge to SNF - Discharge Condition Condition: Stable - Discharge Order Discharge Orders: Discharge Order (Routine); Ordered 12/13/17 Ordered By: Peggy Johnson - Physicians Team Primary Care Provider: UNKNOWN, Attending Provider: Urszula Fu Other Providers: [facility] ; Nixon Sotelo MD ; Brady Crespo MD
== END 2017-12-18 18:00 ==
LOC: NEPD 12:57 → NEDA 12:57 → NEPGCP 12:57
PROVIDERS: ADMIT Family Medicine; ATTEND Family Medicine